=== PATIENT | male | born 1975 | race Hispanic/Latino ===

== ENCOUNTER → 2018-09-27 14:09 | Outpatient (CLI) | payer OTHER, SELFPAY ==
[2018-09-27 15:56] LABS: Alanine Aminotransferase 55 IU/L (21-72); Albumin 4.7 g/dL (3.5-5.0); Albumin Globulin Ratio 1.6 (1.0-2.8); Alkaline Phosphatase 73 U/L (38-126); Aspartate Aminotransferase 46 IU/L (17-59); Bilirubin Total 0.8 mg/dL (0.2-1.3); Bilirubin Unconjugated 0.6 mg/dL (0.0-1.1); Globulin 2.9 g/dL (1.7-4.1); HEMOLYSIS < 15 (0-50); Total Protein 7.6 g/dL (6.3-8.2)
== END ==
PROVIDERS: Visit Provider Internal Medicine
DX: R94.5 Abnormal results of liver function studies (principal)
CPT/HCPCS: 36415; 80076

== ENCOUNTER → 2020-02-29 17:30 | Outpatient (CLI) | payer OTHER, SELFPAY ==
[2020-02-29 19:34] LABS: Urine N gonorrhoeae NOT DETECTED
[2020-02-29 19:40] LABS: Urine Chlamydia NOT DETECTED
== END ==
PROVIDERS: Visit Provider Physician Assistant
DX: N34.3 Urethral syndrome, unspecified (principal); Z71.1 Person with feared health complaint in whom no diagnosis is made
CPT/HCPCS: 87086; 87491; 87591

== ENCOUNTER 2021-06-10 09:40 | Emergency (ER) | payer OTHER, SELFPAY ==
[2021-06-10 10:04] VITALS: BP 144/98; PULSE 90; RESP 18; TEMP 35.5; O2SAT 98; BMI 33.5
--- NOTE | 2021-06-10 10:09 | DI.RAD.S_ITS ---
PROCEDURE: XR FINGER RT MIN 2V INDICATIONS: laceration injurt TECHNIQUE: AP hand, 2 views of the 1st finger(s) acquired. COMPARISON: None. FINDINGS: Bones: No fractures or dislocations. No suspicious bony lesions. Soft tissues: No suspicious soft tissue calcifications. Distal 1st digit soft tissue laceration. IMPRESSION: Distal 1st digit soft tissue laceration without visualized underlying osseous abnormality. Dictated by: Ayesha Perkins M.D. on 06/10/2021 at 10:28 Approved by: Ayesha Perkins M.D. on 06/10/2021 at 10:29
[2021-06-10] MEDS: LIDO 1%/SOD BICARB 8.4% (10ML) 10 ML SYRINGE INJ (12:25)
--- NOTE | 2021-06-10 13:03 | ED.WOUNDLAC ---
HPI - Wound/Laceration <Jordy Castlelanos PA-C - Last Filed: 06/10/21 20:34> General Chief Complaint: Wound/Laceration Stated Complaint: Right hand lac Time Seen by Provider: 06/10/21 12:04 Source: patient Mode of arrival: Ambulatory History of Present Illness HPI narrative: Patient is a 45-year-old male presenting to the emergency department today for an evaluation a Patient states that approximately 0930 this morning he sustained an injury to his right hand while using a Roto hammer. He denies any injury or pain elsewhere in states that he has had a tetanus shot within the last 3 years. Of note, patient states he was able to get bleeding fairly controlled prior to arriving to the emergency department. No fever, chills, chest pain, cough, shortness of breath, nausea, vomiting, diarrhea, constipation, abdominal pain, dysuria, hematuria, numbness and tingling the upper extremities, or any other concerning symptoms reported. No further concerns are voiced at this time. Related Data Home Medications Medication Instructions Recorded Confirmed metformin PO 02/29/20 02/29/20 prednisone PO 02/29/20 06/12/20 voltran PO 02/29/20 06/12/20 amlodipine 10 mg tablet 10 mg PO DAILY 06/12/20 06/12/20 metformin 500 mg tablet 500 mg PO DAILY 06/12/20 06/12/20 methotrexate (PF) 25 mg/0.4 mL 25 mg SUBCUT QWEEK 06/12/20 06/12/20 subcutaneous auto-injector valsartan 40 mg tablet 40 mg PO BID 06/12/20 06/12/20 Previous Rx's Medication Instructions Recorded meclizine 25 mg tablet 25 mg PO BID #14 tab 06/12/20 Allergies Allergy/AdvReac Type Severity Reaction Status Date / Time No Known Drug Allergies Allergy Unverified 02/29/20 17:26 Review of Systems <Jordy Castellanos PA-C - Last Filed: 06/10/21 20:34> Constitutional Constitutional: Denies chills, Denies fatigue, Denies fever(s), Denies frequent falls, Denies lethargy and Denies weakness Eyes Eyes: Denies loss of vision ENT Ears, Nose, Mouth, and Throat: Denies dizziness and Denies neck pain Cardiovascular Cardiovascular: Denies chest pain, Denies irregular heart rhythm, Denies lightheadedness, Denies palpitations, Denies dyspnea, Denies dyspnea on exertion and Denies orthopnea Respiratory Respiratory: Denies cough, Denies dyspnea, Denies dyspnea on exertion and Denies wheezing Gastrointestinal Gastrointestinal: Denies abdominal pain, Denies change in bowel habits, Denies diarrhea, Denies nausea and Denies vomiting Genitourinary Genitourinary: Denies hematuria, Denies flank pain, Denies urinary incontinence and Denies urinary urgency Musculoskeletal Musculoskeletal: Denies back pain, Denies muscle weakness, Denies neck pain, Denies numbness and Denies tingling Integumentary/Breasts Skin/Breast: Denies pruritus, Denies erythema, Denies rash and Reports wounds (Right thumb laceration) Neurologic Neurologic: Denies behavioral changes, Denies confusion, Denies dizziness, Denies frequent falls, Denies loss of vision, Denies numbness, Denies tingling and Denies weakness Psychiatric Psychiatric: Denies behavioral changes and Denies confusion Endocrine Endocrine: Denies fatigue and Denies palpitations Allergic/Immunologic Allergic/Immunologic: Denies wheezing Patient History <Jordy Castellanos PA-C - Last Filed: 06/10/21 20:34> Social History Smoking Status: Former smoker Smoking Status: Former smoker Substance Use Type: does not use Exam <Jordy Castellanos PA-C - Last Filed: 06/10/21 20:34> Narrative Exam Narrative: GENERAL: 45 year old patient appears stated age. Well-developed patient, in no acute distress. HEAD: Atraumatic. Normocephalic. EYES: Pupils equal round and reactive. Extraocular motions intact. No scleral icterus. No injection or drainage. ENT: Nose without bleeding, purulent drainage. Throat without erythema, tonsillar hypertrophy or exudate. Airway patent. NECK: Trachea midline. Non tender CARDIOVASCULAR: Regular rate and rhythm without murmurs, gallops, or rubs. RESPIRATORY: Clear to auscultation. Breath sounds equal bilaterally. No wheezes, rales, or rhonchi. GASTROINTESTINAL: Abdomen soft, non-tender, nondistended. EXTREMITIES: No edema or joint tenderness. BACK: Nontender without deformity or crepitance. No flank tenderness. NEURO: AOx3. Good sensation light touch appreciated throughout the bilateral upper extremities. Gross motor function intact throughout the bilateral upper extremities. SKIN: No rash or erythema of visible areas. Approximately 3.7 cm flap laceration to the distal aspect the right thumb on the palmar aspect. No significant had tissue swelling. No form body appears retained within the laceration on gross examination. No deep tissue structures appear involved. Initial Vital Signs Initial Vital Signs: Vital Signs Temperature 96 F L 06/10/21 10:04 Pulse Rate 90 06/10/21 10:04 Respiratory Rate 18 06/10/21 10:04 Blood Pressure 144/98 H 06/10/21 10:04 Pulse Oximetry 98 06/10/21 10:04 <Lori Montelongo DO - Last Filed: 06/11/21 07:07> Initial Vital Signs Initial Vital Signs: Vital Signs Temperature 96 F L 06/10/21 10:04 Pulse Rate 90 06/10/21 10:04 Respiratory Rate 18 06/10/21 10:04 Blood Pressure 144/98 H 06/10/21 10:04 Pulse Oximetry 98 06/10/21 10:04 Procedures <SAMI Larios Last Filed: 06/10/21 20:34> Laceration Repair Laceration 1: Time of procedure: 13:07 Site: hand (Right thumb) Side (If applicable): right Size (cm): 3.8 Description: flap Depth: simple, single layer Local Anesthetic: lidocaine 1% Amount of anesthesia used (mL): 5 Pre-repair: wound explored, irrigated extensively and deep structures intact Skin layer closed with: nylon Size (cm): 4-0 Number of sutures: 9 Technique: simple, interrupted Course <SAMI Larios Last Filed: 06/10/21 20:34> Course Course Narrative: 10 mL buffered lidocaine ordered. Digital block performed and wound was prepped with chlorhexidine prep. Orders Ordered: Discontinued Medications Bacitracin (Bacitracin Oint 0.9 Gm Pckt) 1 applic TOP NOW ONE Stop: 06/10/21 13:22 Last Admin: 06/10/21 13:29 Dose: 1 applic Documented by: CSIEDLE Lidocaine/Sodium Bicarbonate (Lido 1%/Sod Bicarb 8.4% (10ml) 10 Ml Syringe) 10 ml INJ NOW ONE Stop: 06/10/21 12:13 Last Admin: 06/10/21 12:25 Dose: 10 ml Documented by: NAMITA Vital Signs Vital signs: Vital Signs - 8 hr 06/10/21 13:24 Pulse Rate 74 Respiratory Rate 16 Blood Pressure 142/91 H Pulse Oximetry 99 <Lori Montelongo DO - Last Filed: 06/11/21 07:07> Orders Ordered: Discontinued Medications Bacitracin (Bacitracin Oint 0.9 Gm Pckt) 1 applic TOP NOW ONE Stop: 06/10/21 13:22 Last Admin: 06/10/21 13:29 Dose: 1 applic Documented by: KAYY Lidocaine/Sodium Bicarbonate (Lido 1%/Sod Bicarb 8.4% (10ml) 10 Ml Syringe) 10 ml INJ NOW ONE Stop: 06/10/21 12:13 Last Admin: 06/10/21 12:25 Dose: 10 ml Documented by: NAMITA Vital Signs Vital signs: Vital Signs - 8 hr 06/10/21 13:24 Pulse Rate 74 Respiratory Rate 16 Blood Pressure 142/91 H Pulse Oximetry 99 MDM - Wound/Laceration <Jordy Castellanos PA-C - Last Filed: 06/10/21 20:34> Imaging Data Extremity x-ray #1: Radiologist's Impression: PROCEDURE:? XR FINGER RT MIN 2V ? INDICATIONS:? laceration injurt ? TECHNIQUE:? AP hand, 2 views of the 1st finger(s) acquired.? ? COMPARISON:? None. ? FINDINGS:? ? Bones:? No fractures or dislocations.? No suspicious bony lesions.? ? Soft tissues:? No suspicious soft tissue calcifications.? Distal 1st digit soft tissue laceration. ? IMPRESSION:? Distal 1st digit soft tissue laceration without visualized underlying osseous abnormality. ? ? Dictated by: Ayesha Perkins M.D. on 06/10/2021 at 10:28 ? ? Approved by: Ayesha Perkins M.D. on 06/10/2021 at 10:29 ? MDM Narrative Medical decision making narrative: Differential diagnosis to consider but not limited to superficial skin laceration versus deep tissue laceration versus tendon rupture. The wound edges were approximated well with nine 4-0 sized nylon sutures and the patient tolerated the procedure well. I provided wound care instructions to the patient and informed the patient that the stitches should remain in place for 7-14 days. I urged the patient to either return to the emergency department, visit Urgent Care, walking clinic, or primary care to have the wound evaluated and sutures removed. Patient expresses understanding and agrees to plan. He states at this time the is comfortable being discharged home and is stable for discharge. Strict return precautions were discussed with the patient prior to discharge. Discharge Plan Departure Patient Disposition: Home Clinical Impression: Laceration of right thumb Instructions: DI for Laceration Repair Activity Restrictions/Additional Instructions: *You have been diagnosed with right thumb laceration *What to do: *Please continue to take your regular medications as directed. [ ] New medication prescriptions sent to your pharmacy: [ ] [ ] New medication written as a paper prescription [X] No new medications given You were evaluated in the emergency department today for a right thumb laceration. The wound edges were brought together well with sutures in the emergency department. The suture used need to be removed within 7-14 days. I recommend visiting the emergency department, urgent care, walking clinic, or your primary care provider in about 10 days to have the wound evaluated. Please refrain from soaking the laceration site until completely healed or placing topical ointments over the laceration site. Please follow-up with the primary care provider within the next 2-3 days for further evaluation. Do not hesitate to return to the emergency department if you experience fever, swelling from around the laceration site, discharge from the laceration site, or any other concerning symptoms. *Please follow up with your primary care provider in 2-3 days, call for an appointment. Let them know you were seen in the Emergency Department and that we ask that you be seen in follow up. We will electronically transmit a record of today's note if your PCP is in our system *If you do not have a primary care provider please contact the [facility] Resource line at [phone]. They will ask some questions about your medical history and help get you set up with a doctor in the community. *Return to Emergency Department if you should have any new, worsening or concerning symptoms, such as fever greater than 101 F, shaking chills, worsening pain, persistent vomiting or other bothersome symptoms. Prescriptions: No Action amlodipine 10 mg tablet 10 mg PO DAILY 0RF methotrexate (PF) 25 mg/0.4 mL auto-injector 25 mg SUBCUT QWEEK 0RF valsartan 40 mg tablet 40 mg PO BID 0RF metformin 500 mg tablet 500 mg PO DAILY 0RF meclizine 25 mg tablet 25 mg PO BID Qty: 14 0RF metformin PO 0RF voltran PO 0RF prednisone PO 0RF Stand Alone Forms: Work Release Note <Lori Montelongo, - Last Filed: 06/11/21 07:07> Cosign ED Attending Oneydaature Attestation: I was immediately available in the department for consultation. Documentation has been reviewed. I agree with assessment and plan.
[2021-06-10 13:24] VITALS: BP 142/91; PULSE 74; RESP 16; O2SAT 99
[2021-06-10] MEDS: BACITRACIN OINT 0.9 GM PCKT 1 APPLIC TOP (13:29)
== END 2021-06-10 13:30 | disposition home or self-care (01) ==
PROVIDERS: Emergency Provider Physician Assistant
DX: S61.011A Laceration without foreign body of right thumb without damage to nail, initial encounter (principal); W29.8XXA Contact with other powered hand tools and household machinery, initial encounter; Y99.0 Civilian activity done for income or pay
CPT/HCPCS: 12002; 73140; 99283